=== PATIENT | male | born 1945 | race Caucasian/White ===

== ENCOUNTER → 2017-02-17 | Outpatient (CLI) | payer MEDICARE, MEDICAID ==
[~2017-02-17] MED LIST: AMLO10TA2 PO; ARIP5TAB6 PO; CETI10CA8 PO; ERGO500017 PO; ESCI10TA PO; FINA5TAB4 PO; HYDR-3138 PO; LEVO88TA4 PO; MECL25TA4 PO; METF850T2 PO; METO50TA82 PO; OMEP-110 PO; TAMS0.4C2 PO; TRAM50TA2 PO; TRAZ50TA18 PO; WARF2TAB7 PO
== END | disposition home or self-care (01) ==
LOC: CFH 12:29
PROVIDERS: ATTEND Internal Medicine Cardiovascular Disease
DX: I50.1 Left ventricular failure, unspecified (principal); I51.7 Cardiomegaly; I08.3 Combined rheumatic disorders of mitral, aortic and tricuspid valves; I37.1 Nonrheumatic pulmonary valve insufficiency; Z95.0 Presence of cardiac pacemaker
CPT/HCPCS: 93306

== ENCOUNTER → 2017-03-19 | Outpatient (CLI) | payer MEDICARE, MEDICAID ==
[~2017-03-19] MED LIST changes: +OMNIPAQUE 350 MG/ML, 100ML BOTTLE ONE
== END | disposition home or self-care (01) ==
LOC: CFH 08:40
PROVIDERS: ATTEND Physician Assistant Surgical
DX: N40.1 Benign prostatic hyperplasia with lower urinary tract symptoms (principal)
CPT/HCPCS: 72193; Q9967

== ENCOUNTER 2017-07-09 08:11 | Day surgery (SDC) | payer MEDICARE, MEDICAID ==
[2017-07-08 13:29] LABS: HEMATOCRIT 37.8 % (39.2-51.8); HEMOGLOBIN 13.2 g/dL (13.7-18.0)
[2017-07-08 13:41] LABS: ASPARTATE AMINO TRANSFERASE 52 U/L (15-37); BLOOD UREA NITROGEN 14 mg/dL (7-18)
[~2017-07-09] VITALS: Ht 162.6 cm; Wt 63.7 kg
[~2017-07-09 08:11] MED LIST changes: +ENAL5TAB PO; -OMNIPAQUE 350 MG/ML, 100ML BOTTLE ONE
[2017-07-09 09:02] VITALS: BP 107/69
[2017-07-09] MEDS ORDERED: LACTATED RINGERS 1,000 ML IV SCH (09:29)
[2017-07-09 09:42] LABS: ASPARTATE AMINO TRANSFERASE 55 U/L (15-37); BLOOD UREA NITROGEN 14 mg/dL (7-18)
[2017-07-09] MEDS ORDERED: PROPOFOL 10 MG/ML, 50ML ONE (09:48)
== END 2017-07-09 14:05 | disposition home or self-care (01) ==
LOC: OUT 08:11
PROVIDERS: ATTEND Specialist
DX: K63.5 Polyp of colon (principal); K29.50 Unspecified chronic gastritis without bleeding; K57.30 Diverticulosis of large intestine without perforation or abscess without bleeding; K21.9 Gastro-esophageal reflux disease without esophagitis; Z86.010 Personal history of colon polyps; E11.9 Type 2 diabetes mellitus without complications; I10 Essential (primary) hypertension; Z95.0 Presence of cardiac pacemaker
CPT/HCPCS: 36415; 43239; 45380; 80053; 82962; 85025; 85610; 85730; 88305; J2704; J7120

== ENCOUNTER → 2017-12-02 | Outpatient (CLI) | payer MEDICARE, MEDICAID ==
[~2017-12-02] MED LIST changes: +ARIP5TAB13 PO; -ARIP5TAB6 PO; -HYDR-3138 PO; +HYDR-3237 PO
[2017-12-02 12:38] LABS: BASOPHILS # (AUTO) 0.03 x10^3/uL (0-0.1); BASOPHILS % (AUTO) 0 % (0-1); EOSINOPHILS # (AUTO) 0.27 x10^3/uL (0-0.4); EOSINOPHILS % (AUTO) 3 % (1-7); LYMPHOCYTES # (AUTO) 2.03 x10^3/uL (1-3.4); LYMPHOCYTES % (AUTO) 25 % (22-44); MD NO; MEAN CORPUSCULAR HEMOGLOBIN 33.3 pg (27.5-34.5); MEAN CORPUSCULAR HGB CONC 34.6 g/dL (33.2-36.2); MEAN CORPUSCULAR VOLUME 96.4 fL (81-97); MONOCYTES # (AUTO) 0.59 x10^3/uL (0.2-0.8); MONOCYTES % (AUTO) 7 % (2-9); NEUTROPHILS # (AUTO) 5.28 x10^3/uL (1.8-6.8); NEUTROPHILS % (AUTO) 64 % (42-75); PLATELET COUNT 143 x10^3/uL (130-400); RED BLOOD COUNT 4.25 x10^6/uL (4.38-5.82)
[2017-12-02 12:46] LABS: ALBUMIN 3.9 g/dL (3.4-5.0); ANION GAP 6 mmol/L (5-15); CALCIUM 8.9 mg/dL (8.5-10.1); CHLORIDE 96 mmol/L (98-107)
[2017-12-02 12:58] LABS: ALANINE AMINOTRANSFERASE 38 U/L (12-78); ALKALINE PHOSPHATASE 119 U/L (45-117); BILIRUBIN,TOTAL 1.4 mg/dL (0.2-1.0); CHOL/HDL RATIO 4.5; CHOLESTEROL, TOTAL 150 mg/dL (140-239); CREATININE 1.26 mg/dL (0.7-1.3); HDL CHOL % 22 % (26-37); HDL CHOLESTEROL (DIRECT) 33 mg/dL (40-60); LDL CHOLESTEROL,CALCULATED 91 mg/dL (54-169); LDL/HDL RATIO 2.8 (0.5-3.0); TRIGLYCERIDES 130 mg/dL (50-200); VLDL CHOLESTEROL 26 mg/dL (0-25)
[2017-12-02 13:09] LABS: HEMOGLOBIN A1C 6.5 % (4.2-6.3)
== END | disposition home or self-care (01) ==
LOC: CFH 10:29
PROVIDERS: ATTEND Internal Medicine Cardiovascular Disease
DX: E11.65 Type 2 diabetes mellitus with hyperglycemia (principal); I10 Essential (primary) hypertension; E78.1 Pure hyperglyceridemia; I34.0 Nonrheumatic mitral (valve) insufficiency; I48.2 Chronic atrial fibrillation
CPT/HCPCS: 36415; 80053; 80061; 82043; 83036; 84443; 85025

== ENCOUNTER → 2018-05-27 | Outpatient (CLI) | payer MEDICARE, MEDICAID ==
[~2018-05-27] MED LIST changes: -WARF2TAB7 PO; +WARF2TAB99 PO
[2018-05-27 12:54] LABS: BASOPHILS # (AUTO) 0.02 x10^3/uL (0-0.1); BASOPHILS % (AUTO) 0 % (0-1); EOSINOPHILS # (AUTO) 0.21 x10^3/uL (0-0.4); EOSINOPHILS % (AUTO) 4 % (1-7); LYMPHOCYTES # (AUTO) 1.67 x10^3/uL (1-3.4); LYMPHOCYTES % (AUTO) 31 % (22-44); MD NO; MEAN CORPUSCULAR HEMOGLOBIN 32.2 pg (27.5-34.5); MEAN CORPUSCULAR HGB CONC 33.9 g/dL (33.2-36.2); MEAN CORPUSCULAR VOLUME 94.8 fL (81-97); MEAN PLATELET VOLUME 7.6 fL (7.4-10.4); MONOCYTES % (AUTO) 9 % (2-9); NEUTROPHILS # (AUTO) 3.07 x10^3/uL (1.8-6.8); NEUTROPHILS % (AUTO) 56 % (42-75); PLATELET COUNT 136 x10^3/uL (130-400); RED BLOOD COUNT 4.16 x10^6/uL (4.38-5.82); RED CELL DISTRIBUTION WIDTH 13.4 % (9.4-14.8)
[2018-05-27 13:03] LABS: CHLORIDE 93 mmol/L (98-107)
[2018-05-27 13:11] LABS: HEMOGLOBIN A1C 5.7 % (4.2-6.3)
[2018-05-27 13:20] LABS: ALANINE AMINOTRANSFERASE 32 U/L (12-78); ALBUMIN 3.9 g/dL (3.4-5.0); ALKALINE PHOSPHATASE 96 U/L (45-117); ANION GAP 9 mmol/L (5-15); BILIRUBIN,TOTAL 2.3 mg/dL (0.2-1.0); CALCIUM 8.8 mg/dL (8.5-10.1); CHOL/HDL RATIO 4.7; CHOLESTEROL, TOTAL 147 mg/dL (140-239); CREATININE 1.18 mg/dL (0.7-1.3); FREE T4 (FREE THYROXINE) 1.49 ng/dL (0.76-1.46); HDL CHOL % 21 % (26-37); HDL CHOLESTEROL (DIRECT) 31 mg/dL (40-60); LDL CHOLESTEROL,CALCULATED 91 mg/dL (54-169); LDL/HDL RATIO 2.9 (0.5-3.0); T4 (THYROXINE) 13.3 mcg/dL (4.5-12.1); TOTAL PROTEIN 7.6 g/dL (6.4-8.2); TRIGLYCERIDES 126 mg/dL (50-200); VLDL CHOLESTEROL 25 mg/dL (0-25)
== END | disposition home or self-care (01) ==
LOC: CFH 10:23
PROVIDERS: ATTEND Internal Medicine Cardiovascular Disease
DX: I10 Essential (primary) hypertension (principal); I34.0 Nonrheumatic mitral (valve) insufficiency; I42.9 Cardiomyopathy, unspecified; E11.65 Type 2 diabetes mellitus with hyperglycemia; E78.1 Pure hyperglyceridemia; E87.5 Hyperkalemia; E03.9 Hypothyroidism, unspecified; E03.8 Other specified hypothyroidism; E78.2 Mixed hyperlipidemia
CPT/HCPCS: 36415; 80053; 80061; 82043; 82570; 83036; 84436; 84439; 84443; 84481; 85025

== ENCOUNTER → 2018-06-27 | Outpatient (CLI) | payer MEDICARE, MEDICAID ==
[~2018-06-27] MED LIST changes: +REGADENOSON 0.4 MG/5 ML SYRINGE ONE; +TRAZ-136 PO; -TRAZ50TA18 PO
== END | disposition home or self-care (01) ==
LOC: CFH 07:09
PROVIDERS: ATTEND Internal Medicine Cardiovascular Disease
DX: I21.29 ST elevation (STEMI) myocardial infarction involving other sites (principal); I08.1 Rheumatic disorders of both mitral and tricuspid valves; I11.9 Hypertensive heart disease without heart failure; E11.9 Type 2 diabetes mellitus without complications; I42.9 Cardiomyopathy, unspecified; I25.5 Ischemic cardiomyopathy
CPT/HCPCS: 78452; 93017; 93306; A9502; J2785

== ENCOUNTER → 2018-08-18 | Outpatient (CLI) | payer MEDICARE, MEDICAID ==
[~2018-08-18] MED LIST changes: -AMLO10TA2 PO; +AMLO10TA6 PO; +METF850T10 PO; -METF850T2 PO; -REGADENOSON 0.4 MG/5 ML SYRINGE ONE
[2018-08-18 15:50] LABS: INTERNATIONAL NORMALIZED RATIO 1.72 (0.93-1.1); PROTHROMBIN TIME 17.7 Seconds (9.6-11.5)
== END | disposition home or self-care (01) ==
LOC: CFH 14:05
PROVIDERS: ATTEND Family Medicine
DX: Z51.81 Encounter for therapeutic drug level monitoring (principal); Z79.01 Long term (current) use of anticoagulants
CPT/HCPCS: 36415; 85610

== ENCOUNTER → 2018-08-29 | Outpatient (CLI) | payer MEDICARE, MEDICAID ==
[2018-08-29 13:10] LABS: ANION GAP 8 mmol/L (5-15); CALCIUM 8.9 mg/dL (8.5-10.1); CHLORIDE 100 mmol/L (98-107)
[2018-08-29 13:13] LABS: ALANINE AMINOTRANSFERASE 33 U/L (12-78); ALKALINE PHOSPHATASE 116 U/L (45-117); BILIRUBIN,TOTAL 1.4 mg/dL (0.2-1.0); CREATININE 1.21 mg/dL (0.7-1.3); TOTAL PROTEIN 8.3 g/dL (6.4-8.2)
== END | disposition home or self-care (01) ==
LOC: CFH 12:03
PROVIDERS: ATTEND Family Medicine
DX: E83.51 Hypocalcemia (principal)
CPT/HCPCS: 36415; 80053; 82330; 83735; 83970; 84100

== ENCOUNTER → 2018-09-27 | Outpatient (CLI) | payer MEDICARE, MEDICAID ==
[2018-09-27 16:10] LABS: INTERNATIONAL NORMALIZED RATIO 4.39 (0.93-1.1); PROTHROMBIN TIME 44.4 Seconds (9.6-11.5)
== END | disposition home or self-care (01) ==
LOC: CFH 13:30
PROVIDERS: ATTEND Family Medicine
DX: Z51.81 Encounter for therapeutic drug level monitoring (principal); Z79.01 Long term (current) use of anticoagulants
CPT/HCPCS: 36415; 85610

== ENCOUNTER → 2018-10-14 | Outpatient (CLI) | payer MEDICARE, MEDICAID ==
[2018-10-14 11:46] LABS: MEAN CORPUSCULAR HGB CONC 34.6 g/dL (33.2-36.2); MEAN CORPUSCULAR VOLUME 95.4 fL (81-97); MEAN PLATELET VOLUME 6.9 fL (7.4-10.4); PLATELET COUNT 154 x10^3/uL (130-400); RED CELL DISTRIBUTION WIDTH 14.2 % (9.4-14.8)
[2018-10-14 11:58] LABS: ALBUMIN 3.9 g/dL (3.4-5.0); ANION GAP 6 mmol/L (5-15); CALCIUM 9.2 mg/dL (8.5-10.1); CHLORIDE 101 mmol/L (98-107)
[2018-10-14 12:02] LABS: ALANINE AMINOTRANSFERASE 44 U/L (12-78); ALKALINE PHOSPHATASE 124 U/L (45-117); BILIRUBIN,TOTAL 1.3 mg/dL (0.2-1.0); CHOL/HDL RATIO 4.6; CHOLESTEROL, TOTAL 155 mg/dL (140-239); CREATININE 1.38 mg/dL (0.7-1.3); HDL CHOL % 22 % (26-37); HDL CHOLESTEROL (DIRECT) 34 mg/dL (40-60); LDL CHOLESTEROL,CALCULATED 92 mg/dL (54-169); LDL/HDL RATIO 2.7 (0.5-3.0); TOTAL PROTEIN 8.3 g/dL (6.4-8.2); TRIGLYCERIDES 146 mg/dL (50-200); VLDL CHOLESTEROL 29 mg/dL (0-25)
[2018-10-14 13:06] LABS: HEMOGLOBIN A1C 6.3 % (4.2-6.3)
== END | disposition home or self-care (01) ==
LOC: LAB 11:26
PROVIDERS: ATTEND Internal Medicine Cardiovascular Disease
DX: E11.65 Type 2 diabetes mellitus with hyperglycemia (principal); I48.2 Chronic atrial fibrillation; E87.5 Hyperkalemia; E78.1 Pure hyperglyceridemia
CPT/HCPCS: 36415; 80053; 80061; 83036; 85027

== ENCOUNTER → 2018-11-02 | Outpatient (CLI) | payer MEDICARE, MEDICAID ==
[~2018-11-02] MED LIST changes: -TRAZ-136 PO; +TRAZ50TA66 PO
[2018-11-02 15:54] LABS: INTERNATIONAL NORMALIZED RATIO 4.1 (0.93-1.1); PROTHROMBIN TIME 41.2 Seconds (9.6-11.5)
== END | disposition home or self-care (01) ==
LOC: CFH 13:22
PROVIDERS: ATTEND Family Medicine
DX: Z51.81 Encounter for therapeutic drug level monitoring (principal); Z79.01 Long term (current) use of anticoagulants
CPT/HCPCS: 36415; 85610

== ENCOUNTER → 2018-11-24 | Outpatient (CLI) | payer MEDICARE, MEDICAID ==
[2018-11-24 15:42] LABS: INTERNATIONAL NORMALIZED RATIO 4.3 (0.93-1.1); PROTHROMBIN TIME 43.1 Seconds (9.6-11.5)
== END | disposition home or self-care (01) ==
LOC: CFH 13:47
PROVIDERS: ATTEND Family Medicine
DX: Z51.81 Encounter for therapeutic drug level monitoring (principal); E11.9 Type 2 diabetes mellitus without complications; Z79.01 Long term (current) use of anticoagulants
CPT/HCPCS: 36415; 85610

== ENCOUNTER → 2018-12-28 | Outpatient (CLI) | payer MEDICARE, MEDICAID ==
[~2018-12-28] MED LIST changes: -AMLO10TA6 PO; +AMLO10TA8 PO
[2018-12-28 15:46] LABS: INTERNATIONAL NORMALIZED RATIO 2.43 (0.93-1.1); PROTHROMBIN TIME 24.9 Seconds (9.6-11.5)
== END | disposition home or self-care (01) ==
LOC: CFH 13:36
PROVIDERS: ATTEND Family Medicine
DX: Z51.81 Encounter for therapeutic drug level monitoring (principal); Z79.51 Long term (current) use of inhaled steroids
CPT/HCPCS: 36415; 85610

== ENCOUNTER → 2019-02-01 | Outpatient (CLI) | payer MEDICARE, MEDICAID ==
[2019-02-01 16:22] LABS: INTERNATIONAL NORMALIZED RATIO 3.96 (0.93-1.1); PROTHROMBIN TIME 39.4 Seconds (9.6-11.5)
== END | disposition home or self-care (01) ==
LOC: CFH 13:47
PROVIDERS: ATTEND Family Medicine
DX: Z51.81 Encounter for therapeutic drug level monitoring (principal); Z79.01 Long term (current) use of anticoagulants
CPT/HCPCS: 36415; 85610

== ENCOUNTER → 2019-03-20 | Outpatient (CLI) | payer MEDICARE, MEDICAID ==
[2019-03-20 17:19] LABS: INTERNATIONAL NORMALIZED RATIO 2.26 (0.93-1.1)
== END | disposition home or self-care (01) ==
LOC: LAB 16:51
PROVIDERS: ATTEND Family Medicine
DX: Z51.81 Encounter for therapeutic drug level monitoring (principal); Z79.01 Long term (current) use of anticoagulants
CPT/HCPCS: 36415; 85610

== ENCOUNTER → 2019-03-29 | Outpatient (CLI) | payer MEDICARE, MEDICAID ==
[2019-03-29 15:34] LABS: HEMOGLOBIN A1C 5.5 % (4.2-6.3)
[2019-03-29 15:38] LABS: ALANINE AMINOTRANSFERASE 35 U/L (12-78); ALBUMIN 4.2 g/dL (3.4-5.0); ANION GAP 9 mmol/L (5-15); CALCIUM 9.2 mg/dL (8.5-10.1); CHLORIDE 100 mmol/L (98-107); CHOLESTEROL, TOTAL 148 mg/dL (140-239); CREATININE 1.41 mg/dL (0.7-1.3)
[2019-03-29 15:48] LABS: ALKALINE PHOSPHATASE 116 U/L (45-117); BILIRUBIN,TOTAL 1.6 mg/dL (0.2-1.0); CHOL/HDL RATIO 4.8; HDL CHOL % 21 % (26-37); HDL CHOLESTEROL (DIRECT) 31 mg/dL (40-60); LDL CHOLESTEROL,CALCULATED 94 mg/dL (54-169); TOTAL PROTEIN 7.7 g/dL (6.4-8.2); TRIGLYCERIDES 116 mg/dL (50-200); VLDL CHOLESTEROL 23 mg/dL (0-25)
== END | disposition home or self-care (01) ==
LOC: CFH 12:26
PROVIDERS: ATTEND Family Medicine
DX: I10 Essential (primary) hypertension (principal); E78.2 Mixed hyperlipidemia; E11.9 Type 2 diabetes mellitus without complications; E03.8 Other specified hypothyroidism
CPT/HCPCS: 36415; 80053; 80061; 83036; 84443

== ENCOUNTER → 2019-04-11 | Outpatient (CLI) | payer MEDICARE, MEDICAID ==
[2019-04-11 16:11] LABS: INTERNATIONAL NORMALIZED RATIO 2.04 (0.93-1.1); PROTHROMBIN TIME 20.8 Seconds (9.6-11.5)
== END | disposition home or self-care (01) ==
LOC: CFH 13:51
PROVIDERS: ATTEND Family Medicine
DX: Z51.81 Encounter for therapeutic drug level monitoring (principal); Z79.01 Long term (current) use of anticoagulants
CPT/HCPCS: 36415; 85610

== ENCOUNTER → 2019-05-19 | Outpatient (CLI) | payer MEDICARE, MEDICAID ==
[2019-05-19 17:38] LABS: INTERNATIONAL NORMALIZED RATIO 2.28 (0.93-1.1); PROTHROMBIN TIME 23.2 Seconds (9.6-11.5)
== END | disposition home or self-care (01) ==
LOC: LAB 16:17
PROVIDERS: ATTEND Family Medicine
DX: Z51.81 Encounter for therapeutic drug level monitoring (principal); Z79.01 Long term (current) use of anticoagulants
CPT/HCPCS: 36415; 85610

== ENCOUNTER → 2019-05-24 | Outpatient (CLI) | payer MEDICARE, MEDICAID ==
[2019-05-24 12:06] LABS: BASOPHILS # (AUTO) 0.03 x10^3/uL (0-0.1); BASOPHILS % (AUTO) 1 % (0-1); EOSINOPHILS # (AUTO) 0.31 x10^3/uL (0-0.4); EOSINOPHILS % (AUTO) 6 % (1-7); LYMPHOCYTES # (AUTO) 1.73 x10^3/uL (1-3.4); LYMPHOCYTES % (AUTO) 36 % (22-44); MD NO; MEAN CORPUSCULAR HEMOGLOBIN 33.5 pg (27.5-34.5); MEAN CORPUSCULAR HGB CONC 33.9 g/dL (33.2-36.2); MEAN CORPUSCULAR VOLUME 98.8 fL (81-97); MEAN PLATELET VOLUME 7.9 fL (7.4-10.4); MONOCYTES % (AUTO) 8 % (2-9); NEUTROPHILS # (AUTO) 2.34 x10^3/uL (1.8-6.8); NEUTROPHILS % (AUTO) 49 % (42-75); PLATELET COUNT 125 x10^3/uL (130-400); RED BLOOD COUNT 3.88 x10^6/uL (4.38-5.82); RED CELL DISTRIBUTION WIDTH 13.3 % (9.4-14.8)
[2019-05-24 12:13] LABS: CHLORIDE 97 mmol/L (98-107)
[2019-05-24 12:27] LABS: ALANINE AMINOTRANSFERASE 32 U/L (12-78); ALBUMIN 4.2 g/dL (3.4-5.0); ALKALINE PHOSPHATASE 135 U/L (45-117); ANION GAP 7 mmol/L (5-15); BILIRUBIN,TOTAL 1.2 mg/dL (0.2-1.0); CALCIUM 9.4 mg/dL (8.5-10.1); CHOL/HDL RATIO 4.9; CHOLESTEROL, TOTAL 158 mg/dL (140-239); CREATININE 1.21 mg/dL (0.7-1.3); HDL CHOL % 20 % (26-37); HDL CHOLESTEROL (DIRECT) 32 mg/dL (40-60); LDL CHOLESTEROL,CALCULATED 89 mg/dL (54-169); LDL/HDL RATIO 2.8 (0.5-3.0); T4 (THYROXINE) 13.1 mcg/dL (4.5-12.1); TRIGLYCERIDES 187 mg/dL (50-200); VLDL CHOLESTEROL 37 mg/dL (0-25)
[2019-05-24 13:05] LABS: HEMOGLOBIN A1C 5.9 % (4.2-6.3)
== END | disposition home or self-care (01) ==
LOC: CFH 08:40
PROVIDERS: ATTEND Internal Medicine Cardiovascular Disease
DX: I12.9 Hypertensive chronic kidney disease with stage 1 through stage 4 chronic kidney disease, or unspecified chronic kidney disease (principal); E11.22 Type 2 diabetes mellitus with diabetic chronic kidney disease; N18.2 Chronic kidney disease, stage 2 (mild); I34.0 Nonrheumatic mitral (valve) insufficiency; I42.9 Cardiomyopathy, unspecified; I48.2 Chronic atrial fibrillation; I49.5 Sick sinus syndrome; Z79.01 Long term (current) use of anticoagulants
CPT/HCPCS: 36415; 80053; 80061; 82043; 82570; 83036; 84436; 84443; 84481; 85025

== ENCOUNTER 2019-06-16 13:35 | Outpatient (CLI) | payer MEDICARE, MEDICAID ==
[2019-06-16 16:05] LABS: INTERNATIONAL NORMALIZED RATIO 1.9 (0.93-1.1); PROTHROMBIN TIME 19.5 Seconds (9.6-11.5)
== END 2019-06-16 23:59 | disposition home or self-care (01) ==
LOC: CFH 13:35
PROVIDERS: ATTEND Family Medicine
DX: Z51.81 Encounter for therapeutic drug level monitoring (principal); Z79.01 Long term (current) use of anticoagulants
CPT/HCPCS: 36415; 85610

== ENCOUNTER 2019-09-01 12:33 | Outpatient (CLI) | payer MEDICARE, MEDICAID ==
[2019-09-01 15:39] LABS: INTERNATIONAL NORMALIZED RATIO 3.3 (0.93-1.1); PROTHROMBIN TIME 33.1 Seconds (9.6-11.5)
== END 2019-09-01 23:59 | disposition home or self-care (01) ==
LOC: CFH 12:33
PROVIDERS: ATTEND Family Medicine
DX: Z51.81 Encounter for therapeutic drug level monitoring (principal); Z79.01 Long term (current) use of anticoagulants
CPT/HCPCS: 36415; 85610

== ENCOUNTER 2019-10-24 12:40 | Outpatient (CLI) | payer MEDICARE, MEDICAID ==
[2019-10-24 15:45] LABS: BASOPHILS # (AUTO) 0.01 x10^3/uL (0-0.1); BASOPHILS % (AUTO) 0 % (0-1); EOSINOPHILS # (AUTO) 0.18 x10^3/uL (0-0.4); EOSINOPHILS % (AUTO) 4 % (1-7); LYMPHOCYTES # (AUTO) 1.15 x10^3/uL (1-3.4); LYMPHOCYTES % (AUTO) 26 % (22-44); MD NO; MEAN CORPUSCULAR HEMOGLOBIN 32.8 pg (27.5-34.5); MEAN CORPUSCULAR HGB CONC 33.6 g/dL (33.2-36.2); MEAN CORPUSCULAR VOLUME 97.8 fL (81-97); MEAN PLATELET VOLUME 7.4 fL (7.4-10.4); MONOCYTES # (AUTO) 0.21 x10^3/uL (0.2-0.8); MONOCYTES % (AUTO) 5 % (2-9); NEUTROPHILS # (AUTO) 2.84 x10^3/uL (1.8-6.8); NEUTROPHILS % (AUTO) 65 % (42-75); PLATELET COUNT 145 x10^3/uL (130-400); RED BLOOD COUNT 4.04 x10^6/uL (4.38-5.82)
[2019-10-24 16:13] LABS: ALBUMIN 3.9 g/dL (3.4-5.0); ANION GAP 7 mmol/L (5-15); CALCIUM 8.9 mg/dL (8.5-10.1); CHLORIDE 110 mmol/L (98-107)
[2019-10-24 16:22] LABS: ALANINE AMINOTRANSFERASE 35 U/L (12-78); ALKALINE PHOSPHATASE 117 U/L (45-117); BILIRUBIN,TOTAL 1.3 mg/dL (0.2-1.0); CHOL/HDL RATIO 4.6; CHOLESTEROL, TOTAL 137 mg/dL (140-239); CREATININE 1.07 mg/dL (0.7-1.3); FREE T4 (FREE THYROXINE) 1.39 ng/dL (0.76-1.46); HDL CHOL % 22 % (26-37); HDL CHOLESTEROL (DIRECT) 30 mg/dL (40-60); LDL CHOLESTEROL,CALCULATED 81 mg/dL (54-169); LDL/HDL RATIO 2.7 (0.5-3.0); T4 (THYROXINE) 12.9 mcg/dL (4.5-12.1); TOTAL PROTEIN 7.8 g/dL (6.4-8.2); TRIGLYCERIDES 128 mg/dL (50-200); VLDL CHOLESTEROL 26 mg/dL (0-25)
== END 2019-10-24 23:59 | disposition home or self-care (01) ==
LOC: CFH 12:40
PROVIDERS: ATTEND Internal Medicine Cardiovascular Disease
DX: E11.65 Type 2 diabetes mellitus with hyperglycemia (principal); E03.8 Other specified hypothyroidism; E78.1 Pure hyperglyceridemia; I10 Essential (primary) hypertension; I34.0 Nonrheumatic mitral (valve) insufficiency; I42.9 Cardiomyopathy, unspecified; I49.5 Sick sinus syndrome; Z79.01 Long term (current) use of anticoagulants; Z95.0 Presence of cardiac pacemaker
CPT/HCPCS: 36415; 80053; 80061; 82043; 82570; 83036; 84436; 84439; 84443; 84481; 85025

== ENCOUNTER 2019-11-11 16:13 | Emergency (ER) | payer MEDICARE, MEDICAID ==
[~2019-11-11] VITALS: Ht 165.1 cm; Wt 61.4 kg
--- NOTE | 2019-11-11 17:50 | NUR ---
"I HAVE A HEADACHE AND I FEEL LIKE I'M LIGHTHEADED AND DIZZY AND WEAK LIKE I WANT TO FAINT AND I JUST DON'T FEEL WELL. WHEN I BEND DOWN AND COME BACK UP I FEEL LIKE I WANT TO FALL". C/O OCCIPITAL PATRICK X 1 WK. Also complaining of forgetfulness hx of HB-v-paced ECG obtained in triage
--- NOTE | 2019-11-11 17:55 | NUR ---
[facility] utilized for assessment ([place]ese speaker)
[2019-11-11 18:23] LABS: BASOPHILS # (AUTO) 0.03 x10^3/uL (0-0.1); BASOPHILS % (AUTO) 0 % (0-1); EOSINOPHILS % (AUTO) 3 % (1-7); LYMPHOCYTES # (AUTO) 2.12 x10^3/uL (1-3.4); LYMPHOCYTES % (AUTO) 28 % (22-44); MD NO; MEAN CORPUSCULAR HEMOGLOBIN 32.8 pg (27.5-34.5); MEAN CORPUSCULAR HGB CONC 33.6 g/dL (33.2-36.2); MEAN CORPUSCULAR VOLUME 97.6 fL (81-97); MEAN PLATELET VOLUME 7.7 fL (7.4-10.4); MONOCYTES # (AUTO) 0.68 x10^3/uL (0.2-0.8); MONOCYTES % (AUTO) 9 % (2-9); NEUTROPHILS # (AUTO) 4.64 x10^3/uL (1.8-6.8); NEUTROPHILS % (AUTO) 61 % (42-75); PLATELET COUNT 172 x10^3/uL (130-400); RED BLOOD COUNT 4.37 x10^6/uL (4.38-5.82); RED CELL DISTRIBUTION WIDTH 13.6 % (9.4-14.8)
[2019-11-11 18:29] LABS: INTERNATIONAL NORMALIZED RATIO 3.09 (0.93-1.1); PROTHROMBIN TIME 31.1 Seconds (9.6-11.5)
[2019-11-11 18:31] LABS: ALANINE AMINOTRANSFERASE 37 U/L (12-78); ALBUMIN 3.7 g/dL (3.4-5.0); ANION GAP 9 mmol/L (5-15); CALCIUM 9.1 mg/dL (8.5-10.1); CHLORIDE 99 mmol/L (98-107); CREATININE 1.35 mg/dL (0.7-1.3)
[2019-11-11 18:35] LABS: ALKALINE PHOSPHATASE 115 U/L (45-117); BILIRUBIN,TOTAL 1.5 mg/dL (0.2-1.0); TOTAL PROTEIN 7.7 g/dL (6.4-8.2); TROPONIN I < 0.015 ng/mL (0.000-0.045)
--- NOTE | 2019-11-11 18:55 | NUR ---
Report to ladi REILLY
--- NOTE | 2019-11-11 19:00 | NUR ---
ALL RESULTS BACK CHART UP FOR RECHECK AWAITING FURTHER ORDERS
[2019-11-11 19:06] VITALS: BP 163/87
== END 2019-11-11 20:11 | disposition home or self-care (01) ==
LOC: ED 19:53
DX: G43.C0 Periodic headache syndromes in child or adult, not intractable (principal); R42 Dizziness and giddiness; R53.1 Weakness; I10 Essential (primary) hypertension; E11.9 Type 2 diabetes mellitus without complications; E78.5 Hyperlipidemia, unspecified
CPT/HCPCS: 36415; 70450; 80053; 84484; 85025; 85610; 85730; 93005; 99284

== ENCOUNTER → 2019-12-20 | Outpatient (CLI) | payer MEDICARE, MEDICAID ==
[2019-12-20 13:26] LABS: INTERNATIONAL NORMALIZED RATIO 2.06 (0.93-1.1)
[2019-12-20 13:38] LABS: ALBUMIN 4.1 g/dL (3.4-5.0); ANION GAP 9 mmol/L (5-15); CALCIUM 8.9 mg/dL (8.5-10.1); CHLORIDE 103 mmol/L (98-107)
[2019-12-20 13:48] LABS: ALANINE AMINOTRANSFERASE 30 U/L (12-78); ALKALINE PHOSPHATASE 123 U/L (45-117); BILIRUBIN,TOTAL 1.3 mg/dL (0.2-1.0); CHOL/HDL RATIO 4.3; CHOLESTEROL, TOTAL 162 mg/dL (140-239); CREATININE 1.13 mg/dL (0.7-1.3); FREE T4 (FREE THYROXINE) 1.47 ng/dL (0.76-1.46); HDL CHOL % 23 % (26-37); HDL CHOLESTEROL (DIRECT) 38 mg/dL (40-60); LDL CHOLESTEROL,CALCULATED 102 mg/dL (54-169); LDL/HDL RATIO 2.7 (0.5-3.0); TRIGLYCERIDES 111 mg/dL (50-200); VLDL CHOLESTEROL 22 mg/dL (0-25)
== END | disposition home or self-care (01) ==
LOC: CFH 11:18
PROVIDERS: ATTEND Family Medicine
DX: E11.9 Type 2 diabetes mellitus without complications (principal); E03.8 Other specified hypothyroidism; Z79.01 Long term (current) use of anticoagulants
CPT/HCPCS: 36415; 80053; 80061; 83036; 84439; 84443; 85610

== ENCOUNTER 2020-01-22 12:07 | Outpatient (CLI) | payer MEDICARE, MEDICAID ==
[~2020-01-22 12:07] MED LIST changes: +MECL-101 PO; -MECL25TA4 PO
[2020-01-22 15:58] LABS: ALBUMIN 4.1 g/dL (3.4-5.0); ANION GAP 3 mmol/L (5-15); CHLORIDE 109 mmol/L (98-107)
[2020-01-22 16:02] LABS: INTERNATIONAL NORMALIZED RATIO 2.49 (0.93-1.1); PROTHROMBIN TIME 26.6 Seconds (9.6-11.5)
[2020-01-22 16:09] LABS: ALANINE AMINOTRANSFERASE 32 U/L (12-78); ALKALINE PHOSPHATASE 97 U/L (45-117); BILIRUBIN,TOTAL 1.6 mg/dL (0.2-1.0); CHOL/HDL RATIO 4.5; CHOLESTEROL, TOTAL 141 mg/dL (140-239); CREATININE 1.02 mg/dL (0.7-1.3); FREE T4 (FREE THYROXINE) 1.17 ng/dL (0.76-1.46); HDL CHOL % 22 % (26-37); HDL CHOLESTEROL (DIRECT) 31 mg/dL (40-60); LDL CHOLESTEROL,CALCULATED 85 mg/dL (54-169); LDL/HDL RATIO 2.7 (0.5-3.0); TOTAL PROTEIN 7.8 g/dL (6.4-8.2); TRIGLYCERIDES 123 mg/dL (50-200); VLDL CHOLESTEROL 25 mg/dL (0-25)
== END 2020-01-22 23:59 | disposition home or self-care (01) ==
LOC: CFH 12:07
PROVIDERS: ATTEND Family Medicine
DX: E11.9 Type 2 diabetes mellitus without complications (principal); E03.8 Other specified hypothyroidism; Z79.01 Long term (current) use of anticoagulants
CPT/HCPCS: 36415; 80053; 80061; 83036; 84439; 84443; 85610

== ENCOUNTER → 2020-02-23 | Outpatient (CLI) | payer MEDICARE, MEDICAID ==
[2020-02-23 12:56] LABS: INTERNATIONAL NORMALIZED RATIO 2.82 (0.93-1.1); PROTHROMBIN TIME 30.2 Seconds (9.6-11.5)
== END | disposition home or self-care (01) ==
LOC: CFH 11:21
PROVIDERS: ATTEND Family Medicine
DX: I48.91 Unspecified atrial fibrillation (principal); Z79.01 Long term (current) use of anticoagulants
CPT/HCPCS: 36415; 85610

== ENCOUNTER → 2020-04-16 | Outpatient (CLI) | payer MEDICARE, MEDICAID ==
[2020-04-16 15:36] LABS: INTERNATIONAL NORMALIZED RATIO 3.21 (0.93-1.1); PROTHROMBIN TIME 34.4 Seconds (9.6-11.5)
== END | disposition home or self-care (01) ==
LOC: LAB 15:00
PROVIDERS: ATTEND Family Medicine
DX: I48.91 Unspecified atrial fibrillation (principal); Z79.01 Long term (current) use of anticoagulants
CPT/HCPCS: 36415; 85610

== ENCOUNTER → 2020-05-09 | Outpatient (CLI) | payer MEDICARE, MEDICAID ==
[2020-05-09 15:39] LABS: INTERNATIONAL NORMALIZED RATIO 2.37 (0.93-1.1); PROTHROMBIN TIME 25.3 Seconds (9.6-11.5)
== END | disposition home or self-care (01) ==
LOC: CFH 14:08
PROVIDERS: ATTEND Family Medicine
DX: I48.91 Unspecified atrial fibrillation (principal); Z79.01 Long term (current) use of anticoagulants
CPT/HCPCS: 36415; 85610

== ENCOUNTER 2020-05-22 12:00 | Outpatient (CLI) | payer MEDICARE, MEDICAID | END 2020-05-22 23:59 | disposition home or self-care (01) | LOC: CFH 12:00 | PROVIDERS: ATTEND Internal Medicine Cardiovascular Disease | DX: Z02.9 Encounter for administrative examinations, unspecified (principal) ==

== ENCOUNTER → 2020-11-12 | Outpatient (CLI) | payer MEDICARE, MEDICAID ==
[~2020-11-12] MED LIST changes: +AMLO-211 PO; -AMLO10TA8 PO; -ENAL5TAB PO; +ENAL5TAB10 PO; +REGADENOSON 0.4 MG/5 ML SYRINGE ONE
== END | disposition home or self-care (01) ==
LOC: CFH 07:56
PROVIDERS: ATTEND Internal Medicine Cardiovascular Disease
DX: I34.0 Nonrheumatic mitral (valve) insufficiency (principal); I48.20 Chronic atrial fibrillation, unspecified; I42.9 Cardiomyopathy, unspecified
CPT/HCPCS: 78452; 93017; A9502; J2785

== ENCOUNTER → 2020-11-12 | Outpatient (CLI) | payer MEDICARE, MEDICAID ==
[~2020-11-12] MED LIST changes: -REGADENOSON 0.4 MG/5 ML SYRINGE ONE
== END | disposition home or self-care (01) ==
LOC: CVU 11:44
PROVIDERS: ATTEND Internal Medicine Cardiovascular Disease
DX: I08.8 Other rheumatic multiple valve diseases (principal); I42.9 Cardiomyopathy, unspecified; I48.20 Chronic atrial fibrillation, unspecified
CPT/HCPCS: 93306; 93356